=== PATIENT | male | born 1960 | race Caucasian/White ===

== ENCOUNTER 2023-11-06 07:49 | Day surgery (SDC) | payer OTHER, SELFPAY ==
[2023-11-06] VITALS (9 sets, daily range): BP systolic 122–158; BP diastolic 69–83
--- NOTE | 2023-11-06 11:24 | ITS.CL.IMPLP ---
Component Engineer - Implant Loop
Implant Loop
Procedure Report:
Procedure: Extraction of Loop Recorder and re-implantation.
62 yrs old man with unexplained syncope s/p ILR with no syncope and no diagnostic finding on the depleted ILR.
Date of the procedure: 11/06/23
Procedure Physician: Angelina Alamo MD [facility]
Indication: Old ILR with depleted battery
Description of the procedure:
Patient was brought to the holding area after informed consent was obtained. The time out was performed immediately before the procedure.
The left parasternal chest area was prepped and draped in sterile fashion with chlorahexidine prep x 3 times. Lidocaine 1% was injected subcutaneously for local anesthesia. The loop recorder was palpated and the location was identified. An incision
was made at the previous insertion location. The blunt dissection was done to identify the location of the ILR. The capsule was cut and the ILR was pulled out of the capsule. Pressure applied and hemostasis achieved.
Re-implantation:
The loop recorder was tunneled and then injected into the subcutaneous tissue. The tunneling tool was removed leaving the loop recorder in place. The dermis was closed with 4-0 Monocryl suture followed by steristrips and a pressure Tegaderm dressing
was placed. There were no immediate complications.
Post procedure, the device was interrogated and showed good detectable P and R waves.
There were no immediate complications.
Device:
LINQII; Model: LNQ22; Serial #:[id number]
R wave amplitude: 0.3 mV
Final Programming:
��������������� Tachycardia Detection: >162 bpm for 16 beats
��������������� Bradycardia Detection: 30 bpm for 12 beats, Asystole for 5 seconds.
��������������� Atrial fibrillation detection: On with > 10 min duration
Conclusion:
Successful removal of the loop recorder and re-implantation of new loop recorder.
Recommendation:
Routine post-insert loop care.
== END 2023-11-06 12:40 | disposition home or self-care (01) ==
LOC: CATH 07:49
PROVIDERS: ATTENDING PHYSICIAN Internal Medicine Cardiovascular Disease; FAMILY PHYSICIAN Physician Assistant
DX: Z09 Encounter for follow-up examination after completed treatment for conditions other than malignant neoplasm (principal); R55 Syncope and collapse; I10 Essential (primary) hypertension; I34.0 Nonrheumatic mitral (valve) insufficiency; K57.90 Diverticulosis of intestine, part unspecified, without perforation or abscess without bleeding; R73.02 Impaired glucose tolerance (oral); E66.9 Obesity, unspecified; Z68.30 Body mass index [BMI] 30.0-30.9, adult
CPT/HCPCS: 33285; 33286; 93005; C1764

== ENCOUNTER 2024-01-19 13:04 | Inpatient (IN) | payer OTHER, SELFPAY ==
[2024-01-19] VITALS (21 sets, daily range): BP systolic 120–205; BP diastolic 77–128; BMI 30.6; BMI 29.7
--- NOTE | 2024-01-19 11:55 | EDRN ---
Dr. Alonzo and Sandy [employer] in room w/ Dr. Rowland also in room, interegation of PM done at this time.
--- NOTE | 2024-01-19 11:57 | ED.GENMED ---
History of Present Illness
General
Chief Complaint: Fainting/Passed Out
Source: patient and spouse
Exam Limitations: none
Time Seen by Provider: 01/19/24 11:42
Nursing documentation reviewed up to this point in time: agreed with
Travel History
Have you had any contact with someone who has COVID-19?: No
Do you have any symptoms of coronavirus? Fever > 100 degrees, chills, cough, shortness of breath, sore throat, loss of taste or smell, muscle aches, or headache?: No
History of Present Illness
History of Present Illness:
Patient presents to ED for evaluation after syncopal episode while he was at work this morning. Patient states that he felt lightheaded with nausea sensation prior to passing out. Patient woke up immediately afterwards. Patient does have bruising
on the left side of his chest and flank. In addition, patient also has an abrasion noted on left side of his head from the fall. Denies headache. Denies neck pain. Denies loss of sensation or weakness. Denies shortness of breath. In ED, during
initial triage, patient while obtaining EKG, felt similar symptoms and had witnessed syncopal episode for brief period time, with quick yazidi of mental status. Denies recent illness. Denies recent change in medications or diet. Patient
states that he had 1 additional episode of syncope 4 years ago, and has had a loop recorder since then. Denies recent travel or surgery.
Past History
Past History
ED Past Medical History: HTN
ED Past Surgical History: Other (Hernia repair @ 4 years old, Pyloromyotomy as an , serrated colonic adenoma)
Social History
Tobacco: Non-smoker
Alcohol: Occasional (Only drinks at big events)
Drug: None
Personal:
Living: with family
Employment: Employed
Family History
Family History: Diabetes, Hypertension and Other (Father had a stroke, his mother had a stroke, sister with multiple sclerosis)
Review of Systems
Review of Systems
Allergies reviewed?: Yes
All Other Systems: ROS reviewed and negative except as documented in HPI and ROS
Constitutional: Reports no symptoms
EENT: Reports no symptoms
Respiratory: Reports no symptoms
Cardiac: Reports syncope
ABD/GI: Reports nausea
Musculoskeletal: Reports no symptoms
Skin: Reports other (abrasion)
Neurological: Reports dizzy; Denies headache or weakness
Phy Exam
Physical Exam
Physical Exam:
Physical Exam
General: mild distress, not acutely ill. afebrile.
Head: nc/at. eomi
Neck: supple. no meningeal signs.
Heart: irregularly irregular, tachycardic, no murmur. equal radial pulses.
Lungs: no acute respiratory distress. clear bilaterally
Abdomen: normal bowel sounds. not tender.
Neuro: alert and oriented. no focal neurological deficits
Skin: no rash
Psychiatric: well kept. interactive and cooperative
Extremities: no edema. no calf tenderness.
Course
Orders/Labs/Results
Orders:
Orders
01/19/24 Lunch
NPO
Allow oral meds: Yes
Allow clear liquids: No
01/19/24 11:33
Electrocardiogram (*1) Urgent
Reason for Study: Chest Pain
EKG- Treatment ONCE
01/19/24 11:37
EKG [Electrocardiogram (*1)] Urgent
Reason for Study: Chest Pain
01/19/24 11:38
EKG- Treatment ONCE
01/19/24 11:50
Add On- LAB Urgent
Tests Added?: magnesium, TSH to reflex Free T4
01/19/24 11:54
Atropine Sulfate [Atropine 0.1 mg/ml Syringe] 1 mg .ROUTE .STK-MED ONE
01/19/24 11:55
0.9% Sodium Chloride 500 ml [Nss] 500 ml IV BOLUS
01/19/24 11:57
Complete Blood Count/With Diff Urgent
Comprehensive Metabolic Panel Urgent
Magnesium Urgent
Comment: ADD ON
Troponin I Urgent
01/19/24 11:59
TSH Reflex To Free T4 Urgent
Comment: ADD ON
01/19/24 12:17
Echo 2D MMode Color/Doppler Urgent
Reason for Study: bradycardia, AFIB with RVR, syncope
Comment: needs to be portable. Thank you!
01/19/24 12:23
Admit/Transfer Patient As Directed
Co-Sign Provider:
Level of Care: Inpatient admission
Assign to:: IVU
Physician / Group: Dr Hernandez
Diagnosis: Syncope
Reason for Hospitalization: pte p/w sycnope
Expected length of stay greater than two midnights?: Yes
ELOS- Estimated Length of Stay in days: 2
I certify the patient meets the requirements for IP care: Yes
01/19/24 12:24
Code Status As Directed
Resuscitation Status: Full Code
01/19/24 12:47
Potassium Chloride [KCl] 40 meq PO NOW STA
01/19/24 12:52
CARDIOLOGY CONSULT Routine
Consulting Provider: Mathew Alonzo
Was physician already notified: Yes
Reason for consult: Syncope with symptomatic bradycardia/rapid A-fib RVR
01/19/24 12:[address] Non Medication Order As Directed
Physician Order: have Zoll pads placed at all times ready to use until pacemaker tmr
Above order entered?: Yes
01/19/24 13:00
0.9% Sodium Chloride 1000 ml [Nss] 1,000 ml IV 80 mls/hr
01/19/24 18:00
Acetaminophen [Tylenol] 650 mg PO Q4HPRN PRN
Bisacodyl [Dulcolax] 10 mg RECTAL [id number] PRN
Docusate W/Senna [Senokot-S] 1 tablet PO BIDPRN PRN
Polyethylene Glycol Powder [Miralax] 17 grams PO DAILYPRN PRN
01/19/24 18:00
Activity As Directed
Activity Level: Out of Bed-Early Mobility
Ice Application [Cold Application] As Directed
Location: left facial, left posterior rib, left lower abd
Frequency: Intermittent q2h
Duration of Application: No longer than 20 minutes
Method of Delivery: Ice packs
Pneumatic Compression Sleeves As Directed
Type: Knee high
Vital Signs As Directed
Frequency: Per unit guidelines
Ot Eval And Treat Routine
Pt Eval And Treat Routine
Activity Level: With Assistance
DX Deep Vein Thrombosis Video Routine
01/19/24 18:09
Troponin I Q6H
01/20/24 01:03
Cardiovascular Evaluation IN AM
Complete Blood Count/With Diff IN AM
Comprehensive Metabolic Panel IN AM
Troponin I Q6H
01/21/24 06:00
Complete Blood Count/With Diff IN AM
Comprehensive Metabolic Panel IN AM
01/22/24 06:00
Complete Blood Count/With Diff IN AM
Comprehensive Metabolic Panel IN AM
01/23/24 06:00
Complete Blood Count/With Diff IN AM
Comprehensive Metabolic Panel IN AM
Abnormal Lab Results
01/19/24
11:57
MCH 31.3 H pg
(27.0-31.0)
Absolute Neuts (auto) 8.9 H 10^3/uL
(1.4-6.5)
Absolute Lymphs (auto) 0.9 L 10^3/uL
(1.2-3.4)
Neutrophils % 85.2 H %
(42.2-75.2)
Lymphocytes % 9.0 L %
(20.5-51.1)
Potassium 3.1 L mmol/L
(3.5-5.1)
Glucose 147 H mg/dl
(70-99)
Albumin 5.1 H g/dl
(3.5-5.0)
01/19/24 11:57
01/19/24 11:57
Vital Signs
Initial and Last Documented VS:
Initial Vital Signs
Temp Pulse Resp BP Pulse Ox
97.7 F 64 16 163/92 98
01/19/24 11:30 01/19/24 11:30 01/19/24 11:30 01/19/24 11:30 01/19/24 11:30
Last Documented Vital Signs
Temp Pulse Resp BP Pulse Ox
98.7 F 77 17 144/81 96
01/20/24 05:24 01/19/24 18:30 01/19/24 18:30 01/19/24 18:30 01/19/24 18:31
MDM/Problems Addressed
MDM/Problems Addressed:
Pt seen in ED by (cardiology) - requests hospitalist admission for possible pacemaker placement. Will speak with EP (). Does not recommend any acute treatment of increased HR.
Zoll pads on the patients.
Loop recorder interrogated -2 episodes of significant pause noted
During observation ED, patient with an additional episode of syncope, lasting few seconds. notified. Patient will be transferred to [facility] for temporary pacemaker.
Critical care statement: A total of 40 minutes of critical care time was provided for this patient. This includes management of unstable vital signs, evaluation of the patient at bedside, reviewing the patient's pertinent medical records, discussion
with consultants, review of old EKGs and review of pertinent medical records. This time with separate from time utilized to perform the aforementioned documented procedures
*Critical Care Note
Total Time (30-74mins, 75-104mins- exclusive of procedures): 40 min
ED Attending Note
-
Portions of this chart may have been created with voice recognition software.� Occasional wrong word or��sound alike� substitutions may have occurred due to the inherent limitations of voice recognition software.
Discharge Plan
Departure
Patient Disposition: Admit
Date of Disposition: 01/19/24
Time of Disposition: 12:10
Admit to: IMU
Presentation/result/management discussed w/ accepting MD/DO: Hospitalist
Discharge Problem:
Symptomatic bradycardia, Atrial fibrillation
Interventions
Interventions:
*Risk Screen - Suicide Last Done: 01/19/24 18:25
*General Assessment Last Done: 01/19/24 12:07
*Neglect/Abuse Screening Last Done: 01/19/24 12:07
ED- Fall Risk Assessment Last Done: 01/19/24 12:07
*ED COVID-19 Vaccine History Last Done: 01/19/24 18:25
*Nursing Disposition Last Done: 01/19/24 13:40
ED- Cardiac Assessment Last Done: 01/19/24 12:22
ED- Neurological Assessment Last Done: 01/19/24 12:22
Discharge Date and Time
Discharge Date/Time: 01/19/24 13:40
[2024-01-19 12:11] LABS: % Basophils 0.2 % (0-2); % Eosinophils 0.1 % (0-6); % Immature Granulocytes 0.3 % (0-0.5); % Monocytes 5.2 % (1.7-9.3); % Neutrophils 85.2 % (42.2-75.2); Absolute Lymphocytes 0.9 10^3/uL (1.2-3.4); Absolute Monocytes 0.5 10^3/uL (0.1-0.6); Absolute Neutrophils 8.9 10^3/uL (1.4-6.5); Hematocrit 44.2 % (39.0-52.0); Hemoglobin 16.1 g/dL (13.0-18.0); Mean Corp Hgb Conc. 36.4 g/dL (33.0-37.0); Mean Corpuscular Hgb 31.3 pg (27.0-31.0); Mean Platelet Volume 10.1 fL (7.4-10.4); Nucleated Red Blood Cells % 0 % (-); Platelet Count 197 10^3/uL (130-400); Red Blood Cell Count 5.14 10^6/uL (4.70-6.10); Red Cell Dist. Width 12.2 % (11.5-14.5); White Blood Cell Count 10.4 10^3/uL (4.8-10.8)
--- NOTE | 2024-01-19 12:22 | HPS.HSE ---
Family Physician
-
Family Physician:
Chief Complaint
-
Syncope
History of Present Illness
63-year-old male by EMS with syncope. 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
of a granite counter then falling to the concrete passing out. While in the ER he was noted to be severely bradycardic then had a 15-second pause which then converted to rapid A-fib with RVR. ZOLL pads were placed cardiology Dr. Alonzo was at
bedside to evaluate patient post syncope x 2. Patient reports this happened approximately 3 years ago had a loop recorder implanted which did not find anything. He just had the loop recorder replaced in September. He reports some mild nausea,
denies headache, blurred vision, ear pain, chest pain, shortness of breath, cough, nausea, vomiting, diarrhea, fever, chills, recent illness.
He is compliant with his medications for blood pressure and follows up with his PCP routinely. There is strong family history of A-fib with mother and sister mother requiring pacemaker. Patient physical history includes hypertension, syncope 2020.
Medical History
Past Medical History
Past Medical History: Reports Other
Additional Past Medical History:
hypertension, syncope 2020.
Past Surgical History: Reports Other
Additional Past Surgical History:
Loop recorder 2020
Pylorus repair as child
Right inguinal hernia repair
Social History
Tobacco: Non-smoker
Alcohol: Occasional
Drug: None
Personal: ( Diane)
Living: With Family ( Diane)
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
Family History
Family History: Other (Mother pacemaker, A-fib, DM2 living, father age 84 history of A-fib, HTN, in MVA, 2 sisters 1 with A-fib)
Allergies / Home Medications
Allergies reflects when Allergies were last updated in [employer].
Home Medications with original date entered in [employer]
Allergy/Medication List:
Allergies
Allergy/AdvReac Type Severity Reaction Status Date / Time
No Known Allergies Allergy Verified 01/19/24 11:29
Home Medications
cholecalciferol (vitamin D3) 25 mcg (1,000 unit) tablet 2,500 units PO DAILY Supplement 05/08/20
multivitamin with folic acid 400 mcg tablet (Tab-A-Kamilla) 1 tab PO DAILY Supplement 05/08/20
turmeric 400 mg capsule 500 mg PO DAILY Supplement 05/08/20
amlodipine 5 mg tablet 10 mg PO DAILY 10/22/23
lisinopril 20 mg-hydrochlorothiazide 25 mg tablet 1 tab PO DAILY 10/22/23
omega 6-bxy-rog-fish oil 1,200 mg (144 mg-216 mg) capsule (Fish Oil) 1 cap PO DAILY 10/22/23
Review of Systems
-
History Source: Patient and Family ( Diane at bedside)
A 12 point ROS was completed and negative except as noted: Yes
Constitutional: Denies Fever or Chills
EENT: Reports Other (Contusion left temporal area 2 scrapes); Denies Sore Throat or Runny Nose
Respiratory: Denies Cough or Trouble Breathing
Cardiac: Reports Syncope (X 2); Denies Chest Pain or Diaphoresis
Abdomen/GI: Denies Abdominal Pain, Nausea, Vomiting, Diarrhea, Constipated, Bloody Stools or Black Stools
: Denies Dysuria, Frequency, Flank Pain, Incontinence or Difficulty Voiding
Musculoskeletal: Denies Joint Pain or Edema
Skin: Denies Itching or Rash
Neurological: Reports Dizzy; Denies Headache, Weakness or Numbness
Endocrine: Reports No Symptoms
Hematologic/Lymphatic: Reports No Symptoms
Psych: Reports Calm
Physical Exam
Vital Signs
Vital Signs
Temp Pulse Resp BP Pulse Ox
97.7 F 145 26 146/94 95
01/19/24 11:30 01/19/24 12:00 01/19/24 12:00 01/19/24 12:00 01/19/24 12:00
Physical Exam
General: Comfortable and Conversant; No Pain, Fever or Chills
HEENT: NormoCephalic, Anicteric, Moist mucous membranes, PERRLA, Ears Appear Normal (TM intact left side no rupture of TM no erythema no bleeding), Neck Nontender and Other (No trismus able to open jaw no tenderness over TMJ joint)
Respiratory: Clear; No Wheezes, Rales or Rhonchi
Cardiac: S1/S2 and Irregular Rhythm (Record of bradycardia with 15-second pause on EKG converted to A-fib with RVR 143 bpm); No Murmur, Rub, Gallop or Peripheral Edema
Breast: Deferred by me
GI: Soft, Non Distended, Normal Bowel Sounds, No Hepatosplenomegaly and Other (Contusion left lateral flank, left lower abdomen from fall will monitor)
Rectal: Deferred by Provider
Genito-urinary: Deferred by me
Musculoskeletal: No Clubbing, No Cyanosis and No Edema
Skin: Warm and Dry; No Rash
Neuro: AO x 3, No Motor Deficits, Nonfocal/grossly intact, Cranial Nerves Intact and No Sensory Deficits; No Slurred Speech, Facial Droop or Tremors
Psych: Calm
Laboratory Results
-
01/19/24 11:57
Data Reviewed
-
Lab Data: Labs Reviewed by me
Impression/Plan
-
Impression/Plan:
Admit to IVU
#Symptomatic bradycardia with conversion to A-fib with RVR
-ZOLL pads in place on patient
-Seen by Dr. Clinton WREN cardiology at bedside
-N.p.o. with plan for permanent pacemaker possible cardioversion in a.m.
-IV NSS 80 cc an hour
-Tigan as needed nausea(hold any prolonging QTC agents)
-TSH with free T4 pending, mag, BMP pending
-Check 2D echo
-Check CXR
-Per cardiology will hold on any AC therapy or current rate control medications due to bradycardia with 15-second pause
EKG: Sinus bradycardia at 32 bpm with cardiac pause 6 seconds, QTc 390 MS
EKG:Afib wtih RVR HR [address]
#Syncope with contusion left temporal, left lateral abdomen /left lower abdomen
-Monitor for increased ecchymosis
-Tylenol as needed pain
-Ice to affected area
#Hypokalemia likely secondary to HCTZ
-K3.1 with KCl 40 mEq now
#HTN�benign
Bp 146/94
Will monitor
-Hold lisinopril/HCTZ, hold amlodipine 10 mg daily
DVT prophylaxis
SCDs
Full code
--- NOTE | 2024-01-19 12:23 | CON.CAR ---
Addendum entered and electronically signed by Mathew Alonzo MD 01/19/24 14:22:
63 yo male with PMH of HTN, syncope s/p ILR. Admitted with syncope. Episode was associated with 15 second pause. Had a prior event at work earlier with a 10 sec pause. Then went into Afib with RVR. He does not feel the A fib. Exam with tachy,
irregular rhythm, no murmurs, no edema. Tele and EKG reviewed: sinus bradycardia, asystole, and A fib with RVR.
Patient then experienced another episode of syncope and A fib with slow response: HR 30s.
Now with tachy/austin syndrome. Discussed with EP and interventional cards. Will proceed with temporary pacing wire.
Plan for PPM tomorrow.
Original Note:
Consultation
Consultation Request
Date/Time Consultation Requested: 01/19/2024 11:50
Date/Time Consultation Performed: 01/19/2024 12:00
Requesting Provider: Dr. Rowland
Performing Provider: LUCINA Chan for Dr. Alonzo
Reason for Consultation: Heart block with synope
Medical History
-
Chief Complaint: Syncope
History of Present Illness:
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 This morning he felt well and drove to work. His loop recorder reveals he had an 11-second pause on his
drive to work for which she was asymptomatic. 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 He hit the left side of his temporal area prior to hitting the floor. He was found to be
severely bradycardic and had to episodes of sinus arrest. He had a 15-second pause and then went into atrial fibrillation with rapid ventricular response. ZOLL pads placed on the patient in the emergency room. He endorses associated nausea but
denies neuro complaints.
Past Medical History
Past Medical History: HTN and Other (Syncope)
Social History
Tobacco: Non-Smoker
Alcohol: Occasional
Drug: None
Personal:
Living: With Family
Employment: Employed
Allergies / Home Medications
Allergy/AdvReac Type Severity Reaction Status Date / Time
No Known Allergies Allergy Verified 01/19/24 11:29
�Medication �Instructions �Recorded �Confirmed �Type
cholecalciferol (vitamin D3) 25 2,500 units PO DAILY Supplement 05/08/20 11/06/23 History
mcg (1,000 unit) tablet
multivitamin with folic acid 400 1 tab PO DAILY Supplement 05/08/20 11/06/23 History
mcg tablet (Tab-A-Kamilla)
turmeric 400 mg capsule 500 mg PO DAILY Supplement 05/08/20 11/06/23 History
amlodipine 5 mg tablet 10 mg PO DAILY 10/22/23 11/06/23 History
lisinopril 20 1 tab PO DAILY 10/22/23 11/06/23 History
mg-hydrochlorothiazide 25 mg tablet
omega 7-xdn-edo-fish oil 1,200 mg 1 cap PO DAILY 10/22/23 11/06/23 History
(144 mg-216 mg) capsule (Fish Oil)
Review of Systems
-
All other systems: Negative unless noted
Constitutional: Fatigue
Cardiac: Syncope
Abdomen/GI: Nausea
Physical Exam
Vital Signs
Temp Pulse Resp BP Pulse Ox
97.7 F 145 26 146/94 95
01/19/24 11:30 01/19/24 12:00 01/19/24 12:00 01/19/24 12:00 01/19/24 12:00
Lab Results
01/19/24 11:57
Physical Exam
General: Well Developed, Well Nourished and Comfortable
HEENT: Normocephalic, Anicteric and Moist Mucous Membranes
Respiratory: Non Labored Respirations
Cardiac: S1/S2 and Irregular Rhythm; Negative Peripheral Edema
Breast: Deferred by me
GI: Soft, Non Tender, Non Distended and Normal Bowel Sounds
Rectal: Deferred by Provider
Genito-urinary: No Costovertebral Tender
Musculoskeletal: No Clubbing, No Cyanosis and No Edema
Skin: Warm and Dry
Neuro: AO x 3
Hematologic/Lymphatic: No Lymphadenopathy
Psych: Calm
Impression / Plan
-
Syncope
Sinus arrest
-08:07 for 11 seconds & 10:38 for 15 seconds
-Pause in triage with syncope and rhythm atrial fibrillation with RVR
-No AV tawanna agents in the outpatient setting
-Zoll pads placed
-Labs pending, including TSH
-Echocardiogram
Atrial fibrillation with rapid ventricular response
-He denies palpitations with his heart rate of 140 bpm
-Hold AV tawanna agents given recent sinus arrest with syncope
-Oral Anticoagulation: None
-[id number]: Score 1 (HTN)
HTN
-Decrease agents in the setting of sinus arrest
-Mild LVH on prior echocardiogram
Data Reviewed
-
EKG: Report Reviewed by me (Sinus arrest, ventricular rate 32; atrial fibrillation with rapid ventricular response, inferior lateral ST abnormality, rate 152)
Medical Tests (Nuc Med, Echo etc): Report Reviewed by me (Echocardiogram as above)
Labs: Labs Reviewed by me
Old Records: Reviewed
--- NOTE | 2024-01-19 12:24 | EDRN ---
Dr. Alonzo in room w/ pt at this time.
--- NOTE | 2024-01-19 12:26 | W.PN.UPDATE ---
Update Note
Progress Note Update
This serves as an addendum to the H&P dictated by Yeny Chavez.
I saw and examined the patient.
The CLAIM INSPECTOR or PA's note was reviewed and I agree with the note.
Comment:
Patient 63 years old male with no significant medical history came into the hospital syncope event. Patient was found to be in atrial fibrillation and had significant cardiac pauses. He has had syncope in the past for which he has been placed a
loop recorder and the device was able to capture these events. Patient had premonitory symptoms prior to the syncope event. He reported nausea, lightheadedness. He struck his left rib cage and left side of his head and reported nausea on and off.
No chest pain or shortness of breath. Cardiology consulted. He was referred to hospitalist for further evaluation.
Physical exam:
General: Acutely ill
HEENT: Normocephalic, and Moist Mucous Membranes
Respiratory: Clear to Auscultation; Negative Wheezes, Rales or Rhonchi. Left costal bruises, traumatic.
Cardiac: Irregular rate and rhythm, tachycardic, and S1/S2
GI: Soft, Nontender and Nondistended
Musculoskeletal: No Clubbing, No Cyanosis and No Edema
Neuro: Awake, Alert and Oriented
Psych: Anxious
A/P:
Syncope due to the sick sinus syndrome and atrial fibrillation rapid ventricular response--> he will be admitted to IVU, continue cardiac monitoring, discussed with cardiology in person today and plan for permanent pacemaker tomorrow but if he has
any deterioration plan to do a temporary pacer if necessary. Avoid AV tawanna agents and allow permissive tachycardia. Will give further recommendations based on his clinical course.
--- NOTE | 2024-01-19 12:26 | EDRN ---
Pt for Permanent Pacemaker tomorrow per Dr. Alonzo.
[2024-01-19 12:32] LABS: ALT (SGPT) 41 U/L (0-50); AST (SGOT) 36 U/L (17-59); Albumin 5.1 g/dl (3.5-5.0); Alkaline Phosphatase 72 U/L (38-126); Blood Urea Nitrogen 14 mg/dl (9-20); Calcium 9.8 mg/dl (8.4-10.2); Carbon Dioxide 29 mmol/L (22-30); Chloride 98 mmol/L (98-107); Estimated Creatinine Clearance 97 ml/min; Glucose 147 mg/dl (70-99); Magnesium 1.8 mg/dl (1.6-2.3); Potassium 3.1 mmol/L (3.5-5.1); Sodium 135 mmol/L (135-145); Total Bilirubin 0.7 mg/dl (0.2-1.3); Total Protein 7.8 g/dl (6.3-8.2); eGFR > 60.00
--- NOTE | 2024-01-19 12:37 | EDRN ---
Dr. Hernandez in room w/ pt and he and Yeny SEPULVEDA said to not deliver 500 mL bolus at this time. Reported potassium 3.[address] Hernandez and Yeny SEPULVEDA.
[2024-01-19 13:01] LABS: Troponin I < 0.012 ng/ml
[2024-01-19 13:01] LABS: TSH Reflex To Free T4 2.83 uIU/ml (0.47-4.68)
[2024-01-19] MEDS: NSS 250 IV (13:21)
--- NOTE | 2024-01-19 13:30 | EDRN ---
Pt had another episode of bradycardia sever in 30's though did not pause. Pt very symptomatic. Dr. Rowland to room and contacted Dr. Alonzo. HR sped up to 110's and then again up to 150-160.
--- NOTE | 2024-01-19 13:30 | EDRN ---
At 1320 POX was 90% on RA and pt was placed on oxygen at 2lpm and POX at 1330 was 94% on 2lpm.
[2024-01-19] MEDS: KCL 40 MEQ PO (13:35)
[2024-01-19] MEDS: ZOFRAN 4 MG IV (15:42)
[2024-01-19] MEDS: NSS 1000 IV (15:42)
--- NOTE | 2024-01-19 15:59 | PTCARENOTE ---
Assumed care of pt post temp pacer placement in cath recovery. ECHO done at bedside. Tele showing AF 60-110, bp stable, as charted. at bedside. Pt c/o nausea, Peter Alejandro, DERICK made aware, Zofran given as ordered. 02 NC placed for pt comfort, pt
currently denies nausea. NSS hung at 80 mls/hr as ordered, IVF also at KVO via R IJ venous sheath. Call brewster within reach, will cont to monitor closely.
--- NOTE | 2024-01-19 17:05 | PTCARENOTE ---
Received patient from VICENTE Turcios. Patient verbalizes no c/o pain or discomfort. Verbalizes no c/o feeling nauseous. Tele-SR. BP stable. Patient resting comfortably at this time. verbalizes no needs at time.
--- NOTE | 2024-01-19 17:12 | PTCARENOTE ---
Pt states he 'feels much better', denies nausea. Report given to VICENTE Treviño in ICU. Awaiting ICU bed to be cleaned. report to VICENTE Mantilla in medical laboratory scientist recovery. Call brewster within reach.
--- NOTE | 2024-01-19 17:29 | ITS.CL.PN ---
Slate Splitting Supervisor - Procedure Note
Procedure
Procedure Note:
Temporary Pacemaker Insertion
Date: 01/19/2024
Referring: Mathew Alonzo M.D., Ph.D.
Indication: Tachybradycardia syndrome. Symptomatic, 10-second pause.
Access:
7 [place] Island[place] right internal jugular vein using a modified Seldinger technique with a micropuncture kit under ultrasound guidance.
Pacemaker Information:
Position: Right ventricular apex
Current (mA): 20
Rate (bpm): 50
Procedure:
The patient's right neck and inguinal areas were prepped and draped and standard sterile fashion. The right neck was anesthetized with 1% lidocaine. The internal jugular vein was punctured with a micropuncture needle under ultrasound guidance
using a modified Seldinger technique. Fluoroscopy confirmed satisfactory sheath position. The site was serially dilated and an 8.5 [place] Island[place] Arrow sheath was inserted then sutured in place. A temporary pacemaker wire was covered with a sterile
cover, then inserted through the 8.5 [place] Islander sheath. The tip of the pacemaker was advanced into the apex of the right ventricle. The pacemaker was turned on at 150 bpm at 20 mA. The current was serially decreased showing good capture at 1 mA. The
current was increased to 20 mA and the rate decreased to VVI 50 bpm. The sterile cover was secured and the sheath was covered with two opposing tegaderm dressings. A third tegaderm secured the body of the temporary pacemaker just below the right
clavicle. The patient was transferred to CVICU in stable condition.
Radiation (mGy): 17.42
Dose Area Product (Gy*cm2): 2.4031
Fluoroscopy Time (minutes): 1.5
Conclusions:
1. Successful placement of a temporoary pacemaker via right internal jugular approach without acute complications.
Recommendations:
1. Minimal manipulation of the right internal jugular wire to avoid potential dislodgement.
2. Discussion with EP regarding medical management vs. permanent device.
Copy to: Mathew Alonzo M.D., Ph.D., Angelina Alamo M.D., Mindy Proctor PA-C
--- NOTE | 2024-01-19 18:13 | PTCARENOTE ---
Patient transferred to [facility] via stretcher.
--- NOTE | 2024-01-19 18:35 | PTCARENOTE ---
Addendum entered by Kamila Bush RN 01/19/24 18:52:
abrasions to left abdomen and back
Original Note:
pt received from [employer] aox4, on room air. no complaints at this time. ekg completed per order. labs sent. right ij temp pacer on ma 20 rate 50. zoll pads on as per order. normal sinus rhythm onn the monitor hr in 70s. right IJ site c/d/i. pt
educated about activity restrictions, at bedside, verbalized understanding. scds on. ivf infusing in lac. iv in right ij cordis infusing. all safety precautions in place, call brewster within reach.
[2024-01-19 18:38] LABS: INR 1.08; PT 13.8 Sec (11.4-14.6)
[2024-01-19 18:39] LABS: APTT 28.6 Sec (23.4-35.0)
[2024-01-19 18:40] LABS: Troponin I 0.027 ng/ml
[2024-01-20] VITALS (22 sets, daily range): BP systolic 114–161; BP diastolic 62–92; BMI 29.7
[2024-01-20 01:13] LABS: % Basophils 0.4 % (0-2); % Eosinophils 0.5 % (0-6); % Immature Granulocytes 0.4 % (0-0.5); % Lymphocytes 17.7 % (20.5-51.1); % Monocytes 8.8 % (1.7-9.3); % Neutrophils 72.2 % (42.2-75.2); Absolute Lymphocytes 1.3 10^3/uL (1.2-3.4); Absolute Monocytes 0.7 10^3/uL (0.1-0.6); Absolute Neutrophils 5.3 10^3/uL (1.4-6.5); Hematocrit 38.9 % (39.0-52.0); Hemoglobin 14.4 g/dL (13.0-18.0); Mean Corpuscular Hgb 31.7 pg (27.0-31.0); Mean Corpuscular Volume 85.7 fL (80.0-94.0); Mean Platelet Volume 10.1 fL (7.4-10.4); Nucleated Red Blood Cells % 0 % (-); Platelet Count 183 10^3/uL (130-400); Red Blood Cell Count 4.54 10^6/uL (4.70-6.10); Red Cell Dist. Width 12.4 % (11.5-14.5); White Blood Cell Count 7.4 10^3/uL (4.8-10.8)
[2024-01-20 01:41] LABS: ALT (SGPT) 30 U/L (0-50); AST (SGOT) 32 U/L (17-59); Alkaline Phosphatase 52 U/L (38-126); Blood Urea Nitrogen 14 mg/dl (9-20); Calcium 9.2 mg/dl (8.4-10.2); Carbon Dioxide 31 mmol/L (22-30); Chloride 102 mmol/L (98-107); Estimated Creatinine Clearance 86 ml/min; Glucose 108 mg/dl (70-99); HDL Cholesterol 39 mg/dl; LDL Cholesterol, Calculated 70 mg/dl; Potassium 3.5 mmol/L (3.5-5.1); Sodium 135 mmol/L (135-145); Total Bilirubin 0.7 mg/dl (0.2-1.3); Total Cholesterol 135 mg/dl (50-199); Total Protein 6.2 g/dl (6.3-8.2); Triglyceride 130 mg/dl (10-149); Very Low Density Lipoprotein 26 mg/dl (0-30); eGFR > 60.00
[2024-01-20 01:51] LABS: Troponin I 0.038 ng/ml
[2024-01-20] MEDS: NSS 1000 IV (02:39)
--- NOTE | 2024-01-20 05:25 | PTCARENOTE ---
Pt received at 19:00. Transvenous pacer via R IJ cordis--VVI, rate = 50, mA = 20. KVO NSS infusing via cordis. Transcutaneous pacer pads remain in place as ordered. Pt HR 50s-70s, SR-Sinus Kenny. Pt initial assessment as documented--unchanged. Safe
environment maintained, call brewster within reach, plan of care ongoing.
--- NOTE | 2024-01-20 08:03 | PTCARENOTE ---
Addendum entered by Kamila Bush RN 01/20/24 08:39:
zoll pads in place
Original Note:
pt received from previous rn- aox3, on room air. sinus on monitor. pt with right ij temp pacer- ma 20 rate 50. site c/d/i. pt verbalized understanding of bedrest and restrictions. at bedside. education for preprocedure provided- verbalized
understanding. pt npo. all safety precautions in place, call brewster within reach. ivf infusing and kvo through cordis.
--- NOTE | 2024-01-20 09:22 | W.PN.HOSP.TC ---
Today's Communication/Plan
-
Plan for permanent pacemaker today.
Assessment / Plan
Assessment / Plan
Physical exam:
General: Acutely ill
HEENT: Normocephalic, and Moist Mucous Membranes
Respiratory: Clear to Auscultation; Negative Wheezes, Rales or Rhonchi. Left costal bruises, traumatic.
Cardiac: Irregular rate and rhythm, S1/S2
GI: Soft, Nontender and Nondistended
Musculoskeletal: No Clubbing, No Cyanosis and No Edema
Neuro: Awake, Alert and Oriented
Psych: Anxious
Echocardiogram:
LV ejection fraction is >75%, by visual assessment. No regional wall motion
abnormalities are seen.
Normal right ventricular size and function.
No significant valvular disease.
No significant change since the prior study of 06/11/2023.
A/P:
Syncope due to atrial fibrillation with tachybradycardia syndrome/significant cardiac pauses (10 sc):
Temporary pacer in place
Transferred to ICU
Plan for permanent pacer today
History of loop recorder prior to admission
Discussed with at bedside
Hypertension:
Hold antihypertensives on hold
Monitor blood pressure
Elevated troponin:
Elevated troponin due to non-ischemic myocardial injury
Hypokalemia:
Repleted and trend
DVT prophylaxis:
SCDs
CODE STATUS:
Full code
Total time spent on today's encounter was 52 minutes which included time spent in counseling the patient/family regarding diagnosis and treatment plan as listed above, goals of care, and symptom management. Case was discussed with nursing staff,
specialists, and care coordinators/case management. All labs and imaging personally reviewed by me. Remainder the time spent in detailed review of previous records, lab data, imaging, and other medical provider documentation.
Anticipated Discharge: 24 - 48 hours
Subjective/Interval History
-
Date of Service: January 20, 2024
Patient denies any chest pain or shortness of breath or syncope.
Objective Data
-
Labs:
Laboratory Results
01/20/24
01:03
WBC 7.4
Hgb 14.4
Hct 38.9 L
Plt Count 183
Sodium 135
Potassium 3.5
Chloride 102
Carbon Dioxide 31 H
BUN 14
Creatinine 0.9
Glucose 108 H
Calcium 9.2
Total Bilirubin 0.7
AST 32
ALT 30
Alkaline Phosphatase 52
Vital Signs:
Vital Signs
Temp Pulse Resp BP Pulse Ox
98 F 62 14 137/81 95
01/20/24 07:58 01/20/24 07:30 01/20/24 07:30 01/20/24 07:00 01/20/24 07:58
I&O
01/19/24 01/20/24 01/21/24
06:59 06:59 06:59
Intake Total 1170 / 1260 180 / 180
Output Total 3140 / 3140
Balance -1969 / -0 180 / 180
Review of Systems
-
All other systems: Reviewed and negative
--- NOTE | 2024-01-20 10:24 | CM ---
CM following re: discharge planning.
Discussed in Rounds, reviewed pt's chart, met with pt and pt's spouse at bedside.
Pt is a 63 year old male, admitted with primary dx of Syncope due to the sick sinus syndrome and atrial fibrillation. Per MD, plan for permanent pacemaker tomorrow.
Pt reports he lives with spouse in a 2SH, has 2 supportive children. Pt described himself as independent in all areas [employer], drives, works.
PCP: [facility].
Ph[facility]acy: [facility].
D/C plan: Home with anticipated no needs. Spouse to transport at discharge.
CM will follow with discharge plan updates as hospitalization progresses
--- NOTE | 2024-01-20 11:47 | PTCARENOTE ---
assessment unchanged. awaiting permanent pacer placement. vitals stabe. hr 60s
--- NOTE | 2024-01-20 13:04 | CON.INTV ---
Addendum entered and electronically signed by Erin Berger MD 01/21/24 11:54:
Patient transferred out of ICU. We will sign off. Please call with questions
Original Note:
Consultation
Consultation Request
Date/Time Consultation Requested: 01/19
Date/Time Consultation Performed: 01/19
Reason for Consultation: Critical care
Medical History
-
History of Present Illness:
History obtained from the patient, at bedside and reviewing both inpatient and outpatient records. 63-year-old male with history of syncope in the past with loop recorder in place, who became suddenly dizzy while at work while getting a water
sample. He fell onto his left side. He did regain consciousness after his fall. He was brought to [facility] by EMS, had a 15-second pause, converted to rapid A-fib with RVR. He had a second episode while in the ED. He had a temporary
pacemaker placed admitted to ICU. We are asked to help from critical care standpoint.
Patient had similar episode 4 years and 10 to 12 years ago, transient. He denies chest pain, shortness of breath, fevers, recent illness, recent travel. He had a sleep study 15 years ago at [facility] which was normal
.
PMH: History of syncope in 2020, hypertension. 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
Past Medical History
Past Medical History: None (See above)
Past Surgical History: None (See above)
Social History
Tobacco: Non-smoker
Alcohol: Occasional
Drug: None
Personal:
Living: With Family
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
Family History
Family History: Other (Family history significant for atrial fibrillation)
Allergies / Home Medications
Allergies
Allergy/AdvReac Type Severity Reaction Status Date / Time
No Known Allergies Allergy Verified 01/19/24 11:29
Home Medications
�Medication �Instructions �Recorded �Confirmed �Last Taken �Type
cholecalciferol (vitamin D3) 25 2,500 units PO DAILY Supplement 05/08/20 01/19/24 11/05/23 06:00 History
mcg (1,000 unit) tablet
multivitamin with folic acid 400 1 tab PO DAILY Supplement 05/08/20 01/19/24 11/05/23 06:00 History
mcg tablet (Tab-A-Kamilla)
turmeric 400 mg capsule 500 mg PO DAILY Supplement 05/08/20 01/19/24 11/05/23 06:00 History
amlodipine 5 mg tablet 10 mg PO DAILY Blood Pressure 10/22/23 01/19/24 01/19/24 History
lisinopril 20 1 tab PO DAILY Blood Pressure 10/22/23 01/19/24 01/19/24 History
mg-hydrochlorothiazide 25 mg tablet
omega 6-atm-bjx-fish oil 1,200 mg 1 cap PO DAILY Supplement 10/22/23 01/19/24 11/05/23 06:00 History
(144 mg-216 mg) capsule (Fish Oil)
Review of Systems
-
All other systems: Negative unless noted
Vitals / Labs / Diagnostic Testing
Vital Signs
Temp Pulse Resp BP Pulse Ox
98 F 61 18 130/80 93
01/20/24 11:47 01/20/24 11:00 01/20/24 11:00 01/20/24 11:00 01/20/24 11:00
Lab Data
01/20/24 01:03
01/20/24 01:03
Laboratory Results
01/19/24
18:09
PT 13.8
INR 1.08
APTT 28.6
Diagnostic Testing:
Physical Exam
-
HEENT: Normocephalic and Anicteric
Cardiovascular: S1/S2, Regular Rhythm, Murmur (n), Rub (n), Peripheral Edema (n) and Calf Tenderness (n)
Respiratory: Wheeze (n), Rales (n) and Rhonchi (n)
GI: Soft, Non Distended and Non Tender
Neurology: Awake, Alert and No Motor Deficits
Skin: Good Color and Other (No clubbing, no cyanosis)
General: Comfortable (Conversant)
Assessment
-
63-year-old male with history of syncope in the past, followed by cardiology with loop recorder in place, presented with syncope with symptomatic bradycardia, conversion to atrial fibrillation with rapid ventricular response. Patient required
placement of temporary pacemaker, admitted to ICU for further management
Symptomatic bradycardia, syncope
Atrial fibrillation with RVR
Tachybradycardia syndrome
Hypokalemia
Mild troponin elevation
Chronically elevated serum bicarbonate
Conditions present prior to admission
History of hypertension
History of syncope in the past, loop recorder study
Suspected sleep disordered breathing, negative PSG around 2009
Family history of atrial fibrillation
Plan/recommendations
At this time, patient remains critically ill with placement of right IJ temporary pacemaker. Patient had tachybradycardia syndrome with syncope. Also had a 10 to 15-second pause with symptoms
Hypokalemia also noted
Echocardiogram with EF greater than 75%
Moving forward
Continue with management per cardiology
Plan for permanent pacemaker
Follow electrolytes
Avoid QTc prolonging agents
Would consider repeat outpatient sleep study
Reviewed with patient, at bedside
Will follow
TCCT 31 min
--- NOTE | 2024-01-20 13:46 | PTCARENOTE ---
report given to miguelito Gaspar - pt taken for pacer
[2024-01-20] MEDS: NSS IV (14:58)
--- NOTE | 2024-01-20 16:09 | W.PN.CD ---
Today's Communication / Plan
-
- PPM today
Impression / Plan
-
Syncope
Sinus arrest
-08:07 for 11 seconds & 10:38 for 15 seconds
-Pause in triage with syncope and rhythm atrial fibrillation with RVR
-No AV tawanna agents in the outpatient setting
-continued to have pauses and had temp wire placed on 01/19/24
-Plan for PPM implant today
-Explant of ILR and tem wire after PPM implantation
Atrial fibrillation with rapid ventricular response
-He denies palpitations with his heart rate of 140 bpm
-Hold AV tawanna agents given recent sinus arrest with syncope
-Oral Anticoagulation: None
-[id number]: Score 1 (HTN)
HTN
-Decrease agents in the setting of sinus arrest
-Mild LVH on prior echocardiogram
Physical Exam
Vital Signs/Labs
Vital Signs
Temp Pulse Resp BP Pulse Ox
98 F 64 20 114/62 98
01/20/24 11:47 01/20/24 13:46 01/20/24 13:46 01/20/24 13:46 01/20/24 13:46
01/19/24 01/20/24 01/21/24
06:59 06:59 06:59
Actual Weight 93.8 kg
01/20/24 01:03
01/20/24 01:03
PT 13.8 Sec (11.4-14.6) 01/19/24 18:09
INR 1.08 01/19/24 18:09
APTT 28.6 Sec (23.4-35.0) 01/19/24 18:09
Magnesium 1.8 mg/dl (1.6-2.3) 01/19/24 11:57
Triglycerides 130 mg/dl (10-149) 01/20/24 01:03
LDL Cholesterol, Calc 70 mg/dl 01/20/24 01:03
VLDL Cholesterol, Calc 26 mg/dl (0-30) 01/20/24 01:03
HDL Cholesterol 39 mg/dl 01/20/24 01:03
LAB Results
01/19/24 01/19/24 01/20/24
11:57 18:09 01:03
Troponin I < 0.012 0.027 D 0.038 H* D
Physical Exam
Constitutional: No acute distress and Comfortable
EENT: Anicteric and Moist mucous membranes
Cardiovascular: Rhythm & rate is regular and JVD pressure is normal
Respiratory: Respiratory effort normal, Wheeze Absent and Crackles Absent
GI: Soft, Non tender and Normal bowel sounds
Neuro/Psych: Alert, Oriented and AO x 3
Data Reviewed
-
Date of Service: January 20, 2024
Medical Decision Making: External Notes, Reviewed Test Results, Independent Historian Assessment, Test Interpretation and Review of Case with other Provider
EKG: Tracing Personally Visualized and interpreted
Echo: Report Reviewed by me
Labs: Labs Reviewed by me
Old Records: Reviewed
--- NOTE | 2024-01-20 16:10 | ITS.CL.PACE ---
Addendum entered and electronically signed by Angelina Alamo MD 01/26/24 12:34:
Implantable Loop Recorder Extraction:
The left parasternal chest area was prepped and draped in sterile fashion with chlorahexidine prep x 3 times. Lidocaine 1% was injected subcutaneously for local anesthesia. The loop recorder was palpated and the location was identified. An incision
was made at the previoous insertion location. The blunt dissection was done to identify the location of the ILR using fluoroscopy. The capsule was cut and the ILR was pulled out of the capsule. The dermis was closed with 4-0 Monocryl sutures and
steristrips and a pressure Tegaderm dressing was placed.
There were no immediate complications.
Temporary pacemaker wire removal:
Once PPM was working, the temp wire was removed along wiht the IJ tunnelled sheath under fluoroscopy.
Original Note:
Circulator - Pacemaker Implant
Pacemaker Implant
Procedure Report:
Dual Chamber Pacemaker Placement:
Mr. Rivera is a very pleasant 63 yrs old gentleman with recurrent syncope associated with sinus arrest and long pauses noted in the ER and recorded on the ILR is recommended for PPM placement.�
Indications: Tachy Kenny syndrome
Date of the Procedure: 01/20/24
Pre-Operative Diagnosis: Tachy Kenny syndrome
Post-Operative Diagnosis: Tachy Kenny syndrome
Procedure Performed: DUAL CHAMBER PACEMAKER IMPLANTATION
Performing Physician:
Angelina Alamo MD
Assistants:
EP staff
Anesthesia:
See anesthesia report
Pre-operative antibiotics:
Ancef
Detailed Description of the Procedure:
The patient was identified using hospital identification and informed consent obtained for the procedure. The risks were explained including, but not limited to: Bleeding, infection, arrhythmia, stroke, vascular/cardiac/lung puncture, surgery,
pacemaker dependency/device malfunction. All questions were answered.
The patient was brought to the electrophysiology laboratory in stable condition in fasting state. Continuous electrocardiographic and hemodynamic monitoring was initiated.
The initial rhythm was normal sinus rhythm.
A surgical pause and time out was performed immediately prior to the procedure with review of her medical history, recent labs, allergies and medications with site of procedure identified and consent noted in the chart. Antibiotics pre operatively
given. All team members concurred.
The procedure site was meticulously prepared with surgical scrub and allowed to dry with no pooling. Sterile draping was applied to cover the procedure site. The image intensifier was draped with sterile bag and positioned over the patient.
The left infraclavicular region was prepped and draped in the usual sterile fashion. Local anesthesia was administered subcutaneously using 1% lidocaine / Bupivacaine. The left cephalic vein cutdown was performed with an incision at the
delto-pectoral groove, and vascular sheaths were introduced for lead access. These were advanced into the right ventricle and the right atrium.
The right ventricular lead was secured in position with an active fixation technique at the apical septal location.
The RA lead was attached in the right atrial appendage with active fixation.
There was excellent sensing, pacing, and impedance from the leads, with no diaphragmatic stimulation at 10 V output.�Bovie cautery, antibiotics, and fluoroscopy were used.
The sheaths were withdrawn, and the thresholds remained acceptable. The leads were secured in position at the venous entry site with 2-0 Ethibond. A pocket was fashioned contiguous to the incision. The electrode terminals were connected to the pulse
generator, which was placed into the pocket. The wound was irrigated thoroughly with antibiotic solution.
The wound was closed in 3 layers using 2-0 V loc then two layers of 4-0 V loc sutures to the dermis. Steri-strips were applied externally and covered with Aquacel bandage.
Procedure End:
The procedure was tolerated well.
Estimated Blood loss:
10 cc
Specimens Removed:
No cultures and no specimens were obtained. No intraoperative pathology was identified.
Fluoro time:
2.2 min / 17.1mGy
Urine output:
None
Packs / Drains/ Tubes:
None
Instrument / Sponge Count Correct:
Yes
Complications of the Procedure:
None
Condition of Patient at Time of Transfer:
Hemodynamically stable with no neurological or vascular compromise.
Device information:�
Generator: [employer]; Model: [id number]; Serial # [id number]
Atrial Lead:
Medtronic; Model: 5076-52; Serial # [id number]
Measured data in the right atrium was sensing of 4.1 mV, impedance of 779 ohms and threshold of 1.0 V at 0.4ms.
RV Lead:
Medtronic; Model: 5076-58; Serial # [id number]
Measured data in the RV lead was sensing of 8.1mV, impedance of 741 ohms and threshold of 1.0 V at 0.4ms�
Kenny parameter settings were AAIR < = > DDDR 60-130 bpm. �
����������� Mode Switch: On
����������� Paced AV interval: 180ms
����������� Sensed AV interval: 150 ms.
����������� Rate Adaptive A-V Interval: Off
Output parameters:
����������������������� Amplitude (V)������������� Pulse Width (ms)������� Sensitivity (mV)
����������� RA: ���� 3.5 ����������������� ����������� 0.4������������������ ����������� 0.3
����������� RV:����� 3.5������������������ ����������� 0.4������������������ ����������� 0.9
Summary:
Successful implantation of MRI compatible dual chamber pacemaker
Results/Recommendations:
-Please follow up CXR�
1. Please provide patient with adequate pain control�
Instructions to be given to patient:�
- Please follow up with [facility] at [address] [place] [address] ([phone]) to get your wound checked within 14 days of your discharge.
- Do not wet incision site until after it is evaluated at cardiology clinic. No soaking or bath until then. Showers or Sponge baths are OK.�Dab dry the area after a shower.
- Do not lift left elbow above shoulder, particularly with sudden jerking movements, for 1 month�
- Do not lift anything weighing more than 10 pounds with the left arm for 1 month�
- If you notice any fevers, shortness of breath, lightheadedness, chest pain, or worsening swelling in the wound site, please contact the arrhythmia clinic, contact your community development technician, or present to the hospital for evaluation.�
Angelina Alamo MD
Electrophysiology
[2024-01-20] MEDS: KCL 40 MEQ PO (18:22)
--- NOTE | 2024-01-20 19:12 | PTCARENOTE ---
Pt received at 1615 post pacer. Pt awake, alert and oriented. Denies any pain or discomfort. Right IJ dressing and linq site dressings dry and intact. OOB to the bathroom, gait steady. Immobilizer intact.
[2024-01-20] MEDS: ANCEF 5 IV (19:54)
--- NOTE | 2024-01-20 23:26 | PTCARENOTE ---
Pt received at start of shift, HR SR w/ occasional A-pacing. Arm immobilizer on L side. Pt OOB w/ at bedside. Reinforced activity restrictions and how pacemaker works. Pt states understanding. Pt denies any pain, SOB, or
lightheadedness/dizziness. Informed to notify RN if any changes, call brewster within reach.
[2024-01-21] VITALS (7 sets, daily range): BP systolic 142–152; BP diastolic 73–93; PULSE 68–69; BMI 29.3
[2024-01-21] MEDS: ANCEF 5 IV (03:34)
[2024-01-21 03:52] LABS: % Immature Granulocytes 0.5 % (0-0.5); % Monocytes 2.6 % (1.7-9.3); % Neutrophils 89.9 % (42.2-75.2); Absolute Lymphocytes 0.6 10^3/uL (1.2-3.4); Absolute Monocytes 0.2 10^3/uL (0.1-0.6); Absolute Neutrophils 7.9 10^3/uL (1.4-6.5); Hematocrit 42.5 % (39.0-52.0); Hemoglobin 14.9 g/dL (13.0-18.0); Mean Corp Hgb Conc. 35.1 g/dL (33.0-37.0); Mean Corpuscular Hgb 30.7 pg (27.0-31.0); Mean Corpuscular Volume 87.6 fL (80.0-94.0); Mean Platelet Volume 10.3 fL (7.4-10.4); Nucleated Red Blood Cells % 0 % (-); Platelet Count 193 10^3/uL (130-400); Red Blood Cell Count 4.85 10^6/uL (4.70-6.10); Red Cell Dist. Width 12.3 % (11.5-14.5); White Blood Cell Count 8.8 10^3/uL (4.8-10.8)
[2024-01-21 04:14] LABS: ALT (SGPT) 26 U/L (0-50); AST (SGOT) 28 U/L (17-59); Albumin 4.2 g/dl (3.5-5.0); Alkaline Phosphatase 62 U/L (38-126); Blood Urea Nitrogen 19 mg/dl (9-20); Calcium 9.8 mg/dl (8.4-10.2); Carbon Dioxide 27 mmol/L (22-30); Chloride 106 mmol/L (98-107); Estimated Creatinine Clearance 96 ml/min; Glucose 136 mg/dl (70-99); Potassium 4.5 mmol/L (3.5-5.1); Sodium 139 mmol/L (135-145); Total Bilirubin 0.7 mg/dl (0.2-1.3); Total Protein 6.6 g/dl (6.3-8.2); eGFR > 60.00
--- NOTE | 2024-01-21 05:46 | PTCARENOTE ---
upon waking, pt states L eye feels 'hard to open'. On assessment, pt's L eye very red. No discharge, drainage, or itchiness noted. TAX SENIOR ASSOCIATE Cammie Dougherty TT, refresh eyedrops ordered. Warm compress applied to L eye.
Redness seems to be resolved. Pt states this happened day prior when waking up as well.
[2024-01-21] MEDS: REFRESH EYE DROPS (PF) 1 DROPS OPHTH (07:40)
--- NOTE | 2024-01-21 08:14 | W.PN.CD ---
Today's Communication / Plan
-
- stable for discharge
Impression / Plan
-
Syncope
Sinus arrest
-08:07 for 11 seconds & 10:38 for 15 seconds
-Pause in triage with syncope and rhythm atrial fibrillation with RVR
-No AV tawanna agents in the outpatient setting
-continued to have pauses and had temp wire placed on 01/19/24
-s/p PPM implant - 01/20/24 - dual chamber Medtronic - MRI conditional.
-Explanted of ILR and tem wire after PPM implantation
-Now demand pacing noted.
Atrial fibrillation with rapid ventricular response
-He denies palpitations with his heart rate of 140 bpm
-Hold AV tawanna agents given recent sinus arrest with syncope
-Oral Anticoagulation: None
-[id number]: Score 1 (HTN)
- Resume home meds/
HTN
-Decrease agents in the setting of sinus arrest
-Mild LVH on prior echocardiogram
Physical Exam
Vital Signs/Labs
Vital Signs
Temp Pulse Resp BP Pulse Ox
98.4 F 63 18 142/83 98
01/21/24 07:12 01/21/24 03:45 01/21/24 07:12 01/21/24 03:24 01/21/24 07:12
01/20/24 01/21/24 01/22/24
06:59 06:59 06:59
Actual Weight 93.8 kg 92.7 kg
01/21/24 03:32
01/21/24 03:32
PT 13.8 Sec (11.4-14.6) 01/19/24 18:09
INR 1.08 01/19/24 18:09
APTT 28.6 Sec (23.4-35.0) 01/19/24 18:09
Magnesium 1.8 mg/dl (1.6-2.3) 01/19/24 11:57
Triglycerides 130 mg/dl (10-149) 01/20/24 01:03
LDL Cholesterol, Calc 70 mg/dl 01/20/24 01:03
VLDL Cholesterol, Calc 26 mg/dl (0-30) 01/20/24 01:03
HDL Cholesterol 39 mg/dl 01/20/24 01:03
LAB Results
01/19/24 01/19/24 01/20/24
11:57 18:09 01:03
Troponin I < 0.012 0.027 D 0.038 H* D
Physical Exam
Constitutional: No acute distress and Comfortable
EENT: Anicteric and Moist mucous membranes
Cardiovascular: Rhythm & rate is regular, Pedal edema is absent, JVD pressure is normal and Systolic murmur absent
Respiratory: Respiratory effort normal, Lungs clear to auscul. and Wheeze Absent
GI: Soft, Non tender and Normal bowel sounds
Neuro/Psych: Alert, Oriented and AO x 3
Other: Cardiac Device Site
Data Reviewed
-
Date of Service: January 21, 2024
Medical Decision Making: Reviewed Test Results, Independent Historian Assessment, Test Interpretation and Review of Case with other Provider
EKG: Tracing Personally Visualized and interpreted
Echo: Report Reviewed by me
X-Ray/CT/US/MRI/NUC/PET: Image Personally Visualized and interpreted
Labs: Labs Reviewed by me
Old Records: Reviewed
--- NOTE | 2024-01-21 08:46 | W.PN.HOSP.TC ---
Today's Communication/Plan
-
Discharge planning today.
Assessment / Plan
Assessment / Plan
Physical exam:
General: No acute distress
HEENT: Normocephalic, and Moist Mucous Membranes
Respiratory: Clear to Auscultation; Negative Wheezes, Rales or Rhonchi. Left costal bruises, traumatic.
Cardiac: Irregular rate and rhythm, S1/S2. Sling on shoulder of pacemaker site
GI: Soft, Nontender and Nondistended
Musculoskeletal: No Clubbing, No Cyanosis and No Edema. Sling on shoulder of pacemaker site
Neuro: Awake, Alert and Oriented
Psych: Anxious
Echocardiogram:
LV ejection fraction is >75%, by visual assessment. No regional wall motion
abnormalities are seen.
Normal right ventricular size and function.
No significant valvular disease.
No significant change since the prior study of 06/11/2023.
A/P:
Syncope due to atrial fibrillation with tachybradycardia syndrome/significant cardiac pauses (10 sc):
Status post permanent pacemaker yesterday and no complications today.
Cardiology cleared for discharge
Discussed with at bedside
Hypertension:
Hold antihypertensives on hold
Monitor blood pressure
Elevated troponin:
Elevated troponin due to non-ischemic myocardial injury
Hypokalemia:
Repleted and trend
DVT prophylaxis:
SCDs
CODE STATUS:
Full code
Anticipated Discharge: Today
Subjective/Interval History
-
Date of Service: January 21, 2024
No chest pain or shortness of breath. No syncope.
Objective Data
-
Labs:
Laboratory Results
01/21/24
03:32
WBC 8.8
Hgb 14.9
Hct 42.5
Plt Count 193
Sodium 139
Potassium 4.5 D
Chloride 106
Carbon Dioxide 27
BUN 19
Creatinine 0.8
Glucose 136 H
Calcium 9.8
Total Bilirubin 0.7
AST 28
ALT 26
Alkaline Phosphatase 62
Vital Signs:
Vital Signs
Temp Pulse Resp BP Pulse Ox
98.4 F 63 18 142/83 98
01/21/24 07:12 01/21/24 03:45 01/21/24 07:12 01/21/24 03:24 01/21/24 07:12
I&O
01/20/24 01/21/24 01/22/24
06:59 06:59 06:59
Intake Total 1170 / 1260 1110 / 1110
Output Total 3140 / 3140 600 / 600
Balance -1970 / -1880 510 / 510
[2024-01-21] MEDS: NORVASC 10 MG PO (08:50)
[2024-01-21] MEDS: ORETIC 25 MG PO (11:20)
[2024-01-21] MEDS: ZESTRIL 20 MG PO (11:20)
--- NOTE | 2024-01-21 12:52 | CM ---
CM following for DC planning needs.
Pt. transferred to IVU.
Reviewed initial assessment. Pt. resides in a 2 story home w/ spouse. Functionally, patient is indep. at baseline w/ ADLs, mobility without the use of any assisted device.
Anticipated DC plan is for home, no needs.
CM to follow.
--- NOTE | 2024-01-21 13:01 | W.DCSUMMARY ---
Discharge Summary
Discharge Data
Date of Admission: 01/19/24
Date of Discharge: 01/21/24
-
Pending Results: No
Hospital Course
Patient 63 years old male with history of hypertension and syncope in the past came into the hospital with a syncope event. Patient was found to have atrial fibrillation with rapid medical response and also a 10 to 15-second pause and multiple
cardiac pauses. Cardiology consulted. Patient was placed on a temporary pacer. He underwent a permanent pacemaker. No postprocedural complications. His cardiac medication has been restarted. Patient did have some mild viral conjunctivitis but
required no further treatment other than supportive care and instructed to seek medical care if it gets any worse. Patient is hemodynamically stable and feeling back to his baseline. Cardiology cleared him for discharge today. He will be
discharged in stable condition today.
Discharge duration: 35 minutes
Discharge Plan
-
Patient Disposition: Home (Routine Discharge)
Discharge Diagnosis/Procedures: Atrial fibrillation with tachy-bradycardia syndrome status post pacemaker implant. Hypokalemia. Viral conjunctivitis.
Diet: Low Cholesterol
Activity: Other activity
Additional Activity: As instructed by cardiology.
Driving Restrictions: No driving for 1 week
Bathing Restrictions: OK to Shower
Blood Work: Please PCP to order CBC, BMP within 1 week
Stand Alone Forms: DC Inst - Implanted Device, Return to Work
Referrals:
Phyllis Simpson NP [Specified Professional Personl] - 01/29/24 11:40 am
Emilie Walker NP [Specified Professional Personl] -
(sleep clinic eval for KEVEN given afib, snoring and elevated serum bicarb
Request PSG
appt in sleep clinic in 6 weeks)
Jayce Orellana MD [Non-Admitting Privileges] - in four to six weeks
Mindy Proctor PA [Specified Professional Personl] - in less than 1 week
Prescriptions:
New
acetaminophen [Tylenol] 325 mg capsule
650 mg PO Q4H PRN (Reason: Pain) Qty: 20 0RF
Continued
cholecalciferol (vitamin D3) 1,000 UNITS tablet
2,500 units PO DAILY
multivitamin with folic acid [Tab-A-Kamilla] 1 TABLET tablet
1 tab PO DAILY
turmeric 400 MG capsule
500 mg PO DAILY
lisinopril-hydrochlorothiazide 20-25 mg Tablet
1 tab PO DAILY
amlodipine 5 MG tablet
10 mg PO DAILY
omega [id number]-fish oil [Fish Oil] 1,200 (144-216) mg Capsule
1 cap PO DAILY
Discharge Orders:
Discharge Patient (As Directed); Ordered 01/21/24
Ordered By: Kade Hernandez
Care Plan Goals
Care Plan Goals:
Problem: Readiness for enhanced knowledge related to diagnosis and treatment plan
Goal: Understand your diagnosis and treatment plan needs, including medications if applicable.
Instructions: Know your diagnosis, underlying causes and treatment plan options, including medications if applicable. Consult with your health care team to learn about your diagnosis and treatment plan, including medications if applicable.
Discharge Date and Time
Discharge Date/Time: 01/21/24 13:56
Print Language: [place]
--- NOTE | 2024-01-21 13:55 | PTCARENOTE ---
Pt denies any pain or discomfort at pacer site. OOB ad sue in the room. Pt discharged to home with his . Discharge instructions given and reviewed with good understanding.
[2024-01-21] MEDS: REFRESH EYE DROPS (PF) OPHTH (14:07)
== END 2024-01-21 13:56 | disposition home or self-care (01) | DRG 243 ==
LOC: IVU 13:04
PROVIDERS: Clinical Nurse Specialist Family Health; Internal Medicine Cardiovascular Disease; ADMITTING PHYSICIAN Hospitalist; CONSULT PHYSICIAN Internal Medicine; CONSULT PHYSICIAN Internal Medicine Critical Care Medicine; EMERGENCY PHYSICIAN Emergency Medicine
PROC: 5A1223Z Performance of Cardiac Pacing, Continuous (ICD-10-PCS; 2024-01-19)
PROC: 02HK3JZ Insertion of Pacemaker Lead into Right Ventricle, Percutaneous Approach (ICD-10-PCS; 2024-01-19)
PROC: 0JH606Z Insertion of Pacemaker, Dual Chamber into Chest Subcutaneous Tissue and Fascia, Open Approach (ICD-10-PCS; 2024-01-20)
PROC: 02H63JZ Insertion of Pacemaker Lead into Right Atrium, Percutaneous Approach (ICD-10-PCS; 2024-01-20)
PROC: 0JPT02Z Removal of Monitoring Device from Trunk Subcutaneous Tissue and Fascia, Open Approach (ICD-10-PCS; 2024-01-20)
PROC: 02PA3MZ Removal of Cardiac Lead from Heart, Percutaneous Approach (ICD-10-PCS; 2024-01-20)
DX: I49.5 Sick sinus syndrome (principal); I5A Non-ischemic myocardial injury (non-traumatic); R55 Syncope and collapse; I11.9 Hypertensive heart disease without heart failure; I45.5 Other specified heart block; I48.91 Unspecified atrial fibrillation; E87.6 Hypokalemia; B30.9 Viral conjunctivitis, unspecified; S00.12XA Contusion of left eyelid and periocular area, initial encounter; S30.1XXA Contusion of abdominal wall, initial encounter; W18.39XA Other fall on same level, initial encounter; Y93.89 Activity, other specified; Y92.9 Unspecified place or not applicable; Z82.0 Family history of epilepsy and other diseases of the nervous system; Z82.3 Family history of stroke; Z83.3 Family history of diabetes mellitus; Z82.49 Family history of ischemic heart disease and other diseases of the circulatory system
CPT/HCPCS: 33208; 33210; 33286; 71045; 80053; 80061; 83735; 84443; 84484; 85025; 85610; 85730; 93005; 93306; 97163; 97166; 99291; C1769; C1785; C1892; C1898

== ENCOUNTER → 2024-03-30 12:00 | Outpatient (REF) | payer OTHER, SELFPAY | LOC: DHSLP 12:00 | PROVIDERS: ATTENDING PHYSICIAN Internal Medicine; FAMILY PHYSICIAN Physician Assistant | DX: G47.33 Obstructive sleep apnea (adult) (pediatric) (principal) | CPT/HCPCS: 95800 ==

== ENCOUNTER → 2025-05-13 11:08 | Outpatient (REF) | payer OTHER, SELFPAY | LOC: RAD 11:08 | PROVIDERS: ATTENDING PHYSICIAN Family Medicine | DX: R20.0 Anesthesia of skin (principal); M89.8X1 Other specified disorders of bone, shoulder | CPT/HCPCS: 72052; 73030 ==

== ENCOUNTER → 2025-08-16 13:35 | Outpatient (REF) | payer OTHER, SELFPAY | LOC: MRI 13:35 | PROVIDERS: ATTENDING PHYSICIAN Family Medicine | DX: M54.12 Radiculopathy, cervical region (principal); M50.30 Other cervical disc degeneration, unspecified cervical region | CPT/HCPCS: 72141 ==